=== PATIENT | female | born 1990 | race Caucasian/White ===

== ENCOUNTER 2020-05-14 08:00 | Emergency (ER) | payer OTHER ==
[~2020-05-14] VITALS: Ht 170.2 cm; Wt 96.5 kg
[2020-05-14] MEDS ORDERED: KETOROLAC 30MG/ML VIAL IV STA (09:01)
[2020-05-14] MEDS ORDERED: ONDANSETRON HCL 4MG/2ML INJ IV STA (09:01)
[2020-05-14] MEDS ORDERED: SODIUM CHLORIDE 0.9% 1,000 ML IV ONE (09:15)
[2020-05-14 09:50] LABS: CHLORIDE 107 mEq/L (98-107)
[2020-05-14 09:53] LABS: HCG SCREEN POSITIVE
[2020-05-14 09:54] LABS: BASOPHILS % 0.3 % (0.0-2.0); EOSINOPHILS % 0.8 % (0.0-5.0); HEMATOCRIT. 34.1 % (36.0-48.0); HEMOGLOBIN. 11.3 g/dL (12.0-16.0); LYMPHOCYTES % 15.5 % (20.0-50.0); MEAN CORPUSCULAR HEMOGLOBIN 29.9 pg (28.0-32.0); MEAN CORPUSCULAR VOLUME 89.9 fL (81.0-99.0); MEAN PLATELET VOLUME 9.2 fl (7.4-10.4); MONOCYTES % 3.8 % (2.0-8.0); NEUTROPHILS % 79.6 % (40.0-76.0); PLATELET 235 x1000/uL (130-400); PROTHROMBIN TIME 10.3 sec (9.6-11.0); RED BLOOD CELL COUNT 3.79 mill/uL (4.2-5.4); RED CELL DISTRIBUTION WIDTH 13.9 % (11.6-14.6)
[2020-05-14 10:37] LABS: CLARITY URINE CLEAR (CLEAR); COLOR URINE YELLOW (YELLOW); KETONES URINE NEGATIVE (NEGATIVE); LEUKOCYTE ESTERASE URINE 2+ (NEGATIVE); NITRITE URINE NEGATIVE (NEGATIVE); OCCULT BLOOD URINE 1+ (NEGATIVE); PH URINE 5.5 (4.5-8.0); PROTEIN URINE NEGATIVE (NEGATIVE); SPECIFIC GRAVITY URINE 1.015 (1.005-1.030); UROBILINOGEN URINE 0.2 E.U./dL (0.2-1.0)
[2020-05-14] MEDS ORDERED: METHOTREXATE SODIUM/PF 50 MG/2 ML VIAL IM SCH (14:00)
[2020-05-14] MEDS ORDERED: OXYCODONE HCL/ACETAMINOPHEN 5/325MG TABLET PO ONE (14:15)
[2020-05-14 15:27] VITALS: BP 118/85
== END 2020-05-14 15:28 | disposition home or self-care (01) ==
LOC: ER 08:00
DX: O00.90 Unspecified ectopic pregnancy without intrauterine pregnancy (principal)
CPT/HCPCS: 36415; 76801; 76817; 80053; 81003; 81025; 83690; 84702; 84703; 85025; 85610; 93005; 96361; 96372; 96374; 96375; 99285; J1885; J2405; J7030; J9260